=== PATIENT | female | born 1995 | race Caucasian/White ===

== ENCOUNTER 2017-08-16 19:20 | Emergency (ER) | payer SELFPAY ==
[2017-08-16] MEDS ORDERED: ACETAMINOPHEN TAB 500 MG TAB PO STA (20:07)
[2017-08-16] MEDS ORDERED: SODIUM CHLORIDE 0.9% 1,000 ML IV ONE (20:07)
--- NOTE | 2017-08-16 21:26 | US ---
EXAMINATION TYPE: US OB <= 14 wk fetus DATE OF EXAM: 08/16/2017 COMPARISON: NONE CLINICAL HISTORY: Pain. RLQ pain, no bleeding,h/o ovarian cysts EXAM PERFORMED: OBTA EXAM MEASUREMENTS: GESTATIONAL AGE / DATING Physician Established: Not yet established Dates by LMP: (9 weeks/0 days) EDC: 03/21/2018 Dates by First Scan: No previous this is first scan Dates by Current Scan for: (8 weeks/3 days) EDC: 03/25/2018 MATERNAL ANATOMY Uterus: 10.4 x 6.9 x 6.0cm Right Ovary: 3.8 x 2.4 x 2.0cm Left Ovary: 2.3 x 2.1 x 1.8cm Post CDS / Adnexa: wnl Presence of free fluid: no Presence of corpus luteal cyst: right ovary = 1.5cm Presence of subchorionic bleed: no GESTATION / SURVEY CRL: 1.9cm (8 weeks/3 days) MSD: wnl Yolk Sac (normal less than 6mm): 0.3cm Heart Rate: 171 bpm Rhythm: Normal IUP: Viable IUP Date of LMP: 06/14/2017 Beta HcG (if available): pending IMPRESSION: The ultrasound gestational age is 8 weeks 3 days.. I see no complicating process.
[2017-08-16 21:31] LABS: Basophils # (A) 0.1 k/uL (0-0.2); Basophils % (A) 1 %; CH 30.8; CHCM 34.3; Eosinophils # (A) 0.3 k/uL (0-0.7); Eosinophils % (A) 2 %; HCT 37.2 % (34.0-46.0); HDW 2.33; HGB 12.6 gm/dL (11.4-16.0); Luc # (Auto) 0.08; Luc % (Auto) 1; Lymphocytes # (A) 4.4 k/uL (1.0-4.8); Lymphocytes % (A) 28 %; MCH 30.5 pg (25.0-35.0); MCHC 33.8 g/dL (31.0-37.0); MCV 90.2 fL (80.0-100.0); Mean Platelet Volume 7.6; Monocytes # (A) 0.7 k/uL (0-1.0); Monocytes % (A) 5 %; Neutrophils # (A) 10.2 k/uL (1.3-7.7); Neutrophils % (A) 65 %; RBC 4.13 m/uL (3.80-5.40); RDW 13.2 % (11.5-15.5); WBC 15.8 k/uL (3.8-10.6); WBC (Perox) 16.08
[2017-08-16 21:39] LABS: Partial Thromboplastin Time 22.8 sec (22.0-30.0); Prothrombin Time 10.2 sec (9.0-12.0)
[2017-08-16 21:41] LABS: ALT 46 U/L (9-52); AST 24 U/L (14-36); Alkaline Phosphatase 79 U/L (38-126); Anion Gap 12 mmol/L; Blood Urea Nitrogen 12 mg/dL (7-17); Calcium 9.5 mg/dL (8.4-10.2); Carbon Dioxide 21 mmol/L (22-30); Chloride 104 mmol/L (98-107); Glucose 79 mg/dL (74-99); Non-African American GFR(MDRD) >60 (>60 ml/min/1.73 sqM); Potassium 3.8 mmol/L (3.5-5.1); Sodium 137 mmol/L (137-145); Total Bilirubin 0.2 mg/dL (0.2-1.3); Total Protein 7.1 g/dL (6.3-8.2)
--- NOTE | 2017-08-16 21:53 | ED ---
General Adult HPI - General Chief complaint: Urogenital Stated complaint: 8 weeks /Abd Pain Time Seen by Provider: 08/16/17 19:40 Source: patient, RN notes reviewed, old records reviewed Mode of arrival: ambulatory Limitations: no limitations - History of Present Illness Initial comments: Patient is 22 to feel presents emergency Department chief complaint of 1 day of right lower quadrant pain. Patient reports as a sharp stabbing pain. She states she started to have a couple episodes yesterday within the subsided. 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 Denies any vaginal discharge dysuria or hematuria. Denies any back pain, nausea or vomiting. Patient states that this is her first . - Related Data Home Medications Medication Instructions Recorded Confirmed [phone] 1 tab PO DAILY PRN 08/16/17 08/16/17 [Excedrin] Pnv No.95/Ferrous Fum/Folic AC 1 tab PO DAILY 08/16/17 08/16/17 [ Multivitamin Tablet] Allergies Allergy/AdvReac Type Severity Reaction Status Date / Time No Known Allergies Allergy Verified 08/16/17 19:39 Review of Systems ROS Statement: Those systems with pertinent positive or pertinent negative responses have been documented in the HPI. ROS Other: All systems not noted in ROS Statement are negative. Past Medical History Past Medical History: No Reported History History of Any Multi-Drug Resistant Organisms: None Reported Past Surgical History: No Surgical Hx Reported Past Psychological History: No Psychological Hx Reported Smoking Status: Current every day smoker Past Alcohol Use History: None Reported Past Drug Use History: None Reported General Exam Limitations: no limitations General appearance: alert, in no apparent distress Head exam: Present: atraumatic, normocephalic, normal inspection Eye exam: Present: normal appearance, PERRL, EOMI. Absent: scleral icterus, conjunctival injection, periorbital swelling ENT exam: Present: normal exam, mucous membranes moist Neck exam: Present: normal inspection. Absent: tenderness, meningismus, lymphadenopathy Respiratory exam: Present: normal lung sounds bilaterally. Absent: respiratory distress, wheezes, rales, rhonchi, stridor Cardiovascular Exam: Present: regular rate, normal rhythm, normal heart sounds. Absent: systolic murmur, diastolic murmur, rubs, gallop, clicks GI/Abdominal exam: Present: soft, normal bowel sounds. Absent: distended, tenderness, guarding, rebound, rigid Extremities exam: Present: normal inspection, full ROM, normal capillary refill. Absent: tenderness, pedal edema, joint swelling, calf tenderness Back exam: Present: normal inspection Neurological exam: Present: alert, oriented X3, CN II-XII intact Psychiatric exam: Present: normal affect, normal mood Skin exam: Present: warm, dry, intact, normal color. Absent: rash Course Vital Signs 08/16/17 08/16/17 19:26 22:34 Temperature 98.4 F 98.7 F Pulse Rate 87 81 Respiratory 16 18 Rate Blood Pressure 141/79 139/85 O2 Sat by Pulse 100 99 Oximetry Medical Decision Making - Medical Decision Making 22-year-old female to plan 1 day of right lower quadrant abdominal pain. It is . Ultrasound shows viable IUP, no signs of ectopic . Discussed that she is a mildly elevated white blood cell count. Discussed clinically patient is up-to-date the picture for appendicitis. No fever. No rigors or chills. Patient's urinalysis negative for any infection. Pelvic exam was benign. Ultrasound does show a right ovarian cyst. With this is likely the source of pain. Patient will be discharged at this time with close follow-up with RESEARCH LEADER and primary care provider patient agrees to treatment plan will comply. Discharge vitamins. - Lab Data Result diagrams: 08/16/17 21:18 08/16/17 21:18 Lab Results 08/16/17 08/16/17 08/16/17 Range/Units 21:18 21:18 21:18 WBC 15.8 H (3.8-10.6) k/uL RBC 4.13 (3.80-5.40) m/uL Hgb 12.6 (11.4-16.0) gm/dL Hct 37.2 (34.0-46.0) % MCV 90.2 (80.0-100.0) fL MCH 30.5 (25.0-35.0) pg MCHC 33.8 (31.0-37.0) g/dL RDW 13.2 (11.5-15.5) % Plt Count 341 (150-450) k/uL Neutrophils % 65 % Lymphocytes % 28 % Monocytes % 5 % Eosinophils % 2 % Basophils % 1 % Neutrophils # 10.2 H (1.3-7.7) k/uL Lymphocytes # 4.4 (1.0-4.8) k/uL Monocytes # 0.7 (0-1.0) k/uL Eosinophils # 0.3 (0-0.7) k/uL Basophils # 0.1 (0-0.2) k/uL PT (9.0-12.0) sec INR (<1.2) APTT (22.0-30.0) sec Sodium 137 (137-145) mmol/L Potassium 3.8 (3.5-5.1) mmol/L Chloride 104 (98-107) mmol/L Carbon Dioxide 21 L (22-30) mmol/L Anion Gap 12 mmol/L BUN 12 (7-17) mg/dL Creatinine 0.50 L (0.52-1.04) mg/dL Est GFR (MDRD) Af Amer >60 (>60 ml/min/1.73 sqM) Est GFR (MDRD) Non-Af >60 (>60 ml/min/1.73 sqM) Glucose 79 (74-99) mg/dL Calcium 9.5 (8.4-10.2) mg/dL Total Bilirubin 0.2 (0.2-1.3) mg/dL AST 24 (14-36) U/L ALT 46 (9-52) U/L Alkaline Phosphatase 79 (38-126) U/L Total Protein 7.1 (6.3-8.2) g/dL Albumin 4.3 (3.5-5.0) g/dL HCG, Quant 06339.9 mIU/mL Urine Color Urine Appearance (Clear) Urine pH (5.0-8.0) Ur Specific Ken[place] (1.001-1.035) Urine Protein (Negative) Urine Glucose (UA) (Negative) Urine Ketones (Negative) Urine Blood (Negative) Urine Nitrite (Negative) Urine Bilirubin (Negative) Urine Urobilinogen (<2.0) mg/dL Ur Leukocyte Esterase (Negative) Urine RBC (0-5) /hpf Urine WBC (0-5) /hpf Ur Squamous Epith Cells (0-4) /hpf Trichomonas Ag (Rapid) (Negative) Blood Type B Positive Blood Type Recheck No 08/16/17 08/16/17 08/16/17 Range/Units 21:18 21:18 22:00 WBC (3.8-10.6) k/uL RBC (3.80-5.40) m/uL Hgb (11.4-16.0) gm/dL Hct (34.0-46.0) % MCV (80.0-100.0) fL MCH (25.0-35.0) pg MCHC (31.0-37.0) g/dL RDW (11.5-15.5) % Plt Count (150-450) k/uL Neutrophils % % Lymphocytes % % Monocytes % % Eosinophils % % Basophils % % Neutrophils # (1.3-7.7) k/uL Lymphocytes # (1.0-4.8) k/uL Monocytes # (0-1.0) k/uL Eosinophils # (0-0.7) k/uL Basophils # (0-0.2) k/uL PT 10.2 (9.0-12.0) sec INR 1.0 (<1.2) APTT 22.8 (22.0-30.0) sec Sodium (137-145) mmol/L Potassium (3.5-5.1) mmol/L Chloride (98-107) mmol/L Carbon Dioxide (22-30) mmol/L Anion Gap mmol/L BUN (7-17) mg/dL Creatinine (0.52-1.04) mg/dL Est GFR (MDRD) Af Amer (>60 ml/min/1.73 sqM) Est GFR (MDRD) Non-Af (>60 ml/min/1.73 sqM) Glucose (74-99) mg/dL Calcium (8.4-10.2) mg/dL Total Bilirubin (0.2-1.3) mg/dL AST (14-36) U/L ALT (9-52) U/L Alkaline Phosphatase (38-126) U/L Total Protein (6.3-8.2) g/dL Albumin (3.5-5.0) g/dL HCG, Quant mIU/mL Urine Color Yellow Urine Appearance Cloudy H (Clear) Urine pH 6.0 (5.0-8.0) Ur Specific [place] 1.023 (1.001-1.035) Urine Protein Negative (Negative) Urine Glucose (UA) Negative (Negative) Urine Ketones Negative (Negative) Urine Blood Negative (Negative) Urine Nitrite Negative (Negative) Urine Bilirubin Negative (Negative) Urine Urobilinogen <2.0 (<2.0) mg/dL Ur Leukocyte Esterase Negative (Negative) Urine RBC 5 (0-5) /hpf Urine WBC 2 (0-5) /hpf Ur Squamous Epith Cells 11 H (0-4) /hpf Trichomonas Ag (Rapid) Negative (Negative) Blood Type Blood Type Recheck - Radiology Data Radiology results: report reviewed Ultrasound shows will intrauterine . Measures eight weeks in one day. Also Derwent right sided ovarian cyst. Disposition Clinical Impression: Abdominal pain affecting , Ovarian cyst Disposition: HOME SELF-CARE Condition: Good Instructions: Ovarian Cyst (ED), Abdominal Pain in (ED) Additional Instructions: Patient rested Tylenol for pain. Take vitamins Follow-up with primary care provider. Return to emergency department if any alarming signs symptoms occur. Referrals: None,Stated [Primary Care Provider] - 1-2 days Michell Paz MD [STAFF PHYSICIAN] - 1-2 days Time of Disposition: 22:14
[2017-08-16 22:00] LABS: Appearance,Urine Cloudy (Clear); Bilirubin,Urine Negative (Negative); Glucose,Urine (UA) Negative (Negative); Ketones,Urine Negative (Negative); Leukocyte Esterase,Urine Negative (Negative); Nitrite,Urine Negative (Negative); Particle Count 3806; Protein,Urine Negative (Negative); RBC,Urine 5 /hpf (0-5); Specific Gravity,Urine 1.023 (1.001-1.035); Squamous Epithelial Cell,Urine 11 /hpf (0-4); UA Billing (MACRO vs. MICRO) MICRO; Urobilinogen,Urine <2.0 mg/dL (<2.0); WBC,Urine 2 /hpf (0-5)
[2017-08-16 22:36] VITALS: BP 139/85; PULSE 81; RESP 18; TEMP 98.7
== END 2017-08-16 22:34 | disposition home or self-care (01) ==
LOC: EC 19:20
DX: O34.81 Maternal care for other abnormalities of pelvic organs, first trimester (principal); N83.201 Unspecified ovarian cyst, right side; O99.331 Smoking (tobacco) complicating pregnancy, first trimester; F17.200 Nicotine dependence, unspecified, uncomplicated; Z79.899 Other long term (current) drug therapy; Z3A.08 8 weeks gestation of pregnancy
CPT/HCPCS: 36415; 76801; 80053; 81001; 84702; 85025; 85610; 85730; 86900; 86901; 87070; 87205; 87491; 87591; 87808; 96360; 99284

== ENCOUNTER 2018-04-01 07:17 | Observation (INO) | payer OTHER ==
[2018-04-01] MEDS ORDERED: MORPHINE SULFATE 2 MG/ML SYRINGE IV STA (07:59)
[2018-04-01] MEDS ORDERED: SODIUM CHLORIDE 0.9% 1,000 ML IV STA (07:59)
[2018-04-01] MEDS ORDERED: ONDANSETRON 4 MG/2 ML VIAL IVP STA (07:59)
[2018-04-01] MEDS ORDERED: SODIUM CHLORIDE 0.9% 500 ML IV STA (07:59)
[2018-04-01] MEDS ORDERED: HYDROmorphone 0.5 MG/0.5 ML SYRINGE IVP STA (08:10)
[2018-04-01 08:20] LABS: Basophils # (A) 0.1 k/uL (0-0.2); Basophils % (A) 1 %; Eosinophils # (A) 0.2 k/uL (0-0.7); Eosinophils % (A) 2 %; HCT 38.8 % (34.0-46.0); HGB 13.7 gm/dL (11.4-16.0); Lymphocytes # (A) 2.8 k/uL (1.0-4.8); Lymphocytes % (A) 24 %; MCH 30.7 pg (25.0-35.0); MCHC 35.4 g/dL (31.0-37.0); MCV 86.8 fL (80.0-100.0); Mean Platelet Volume 6.9; Monocytes # (A) 0.5 k/uL (0-1.0); Monocytes % (A) 5 %; Neutrophils # (A) 7.9 k/uL (1.3-7.7); Neutrophils % (A) 68 %; Platelet Count 430 k/uL (150-450); RBC 4.47 m/uL (3.80-5.40); RDW 13.1 % (11.5-15.5); WBC 11.7 k/uL (3.8-10.6)
[2018-04-01 08:29] LABS: Partial Thromboplastin Time 22.9 sec (22.0-30.0); Prothrombin Time 9.8 sec (9.0-12.0)
[2018-04-01 08:32] LABS: ALT 29 U/L (9-52); AST 29 U/L (14-36); Albumin 3.8 g/dL (3.5-5.0); Alkaline Phosphatase 135 U/L (38-126); Amylase 49 U/L (30-110); Anion Gap 15 mmol/L; Blood Urea Nitrogen 22 mg/dL (7-17); Calcium 9.2 mg/dL (8.4-10.2); Carbon Dioxide 23 mmol/L (22-30); Chloride 105 mmol/L (98-107); Glucose 83 mg/dL (74-99); Lipase 125 U/L (23-300); Magnesium 1.7 mg/dL (1.6-2.3); Potassium 4.2 mmol/L (3.5-5.1); Sodium 143 mmol/L (137-145); Total Bilirubin 0.3 mg/dL (0.2-1.3); Total Protein 6.7 g/dL (6.3-8.2)
[2018-04-01 08:43] LABS: Creatine Kinase 39 U/L (30-135)
[2018-04-01 08:57] LABS: Creatine Kinase MB <0.2 ng/mL (0.0-2.4); Troponin I <0.012 ng/mL (0.000-0.034)
--- NOTE | 2018-04-01 09:16 | ED ---
Chest Pain HPI - General Chief Complaint: Chest Pain Stated Complaint: Chest Pain Time Seen by Provider: 04/01/18 07:38 Source: patient Mode of arrival: wheelchair Limitations: no limitations - History of Present Illness Initial Comments: 22 years old female sets with the chest pain, chest pain radiates towards her back she just delivered a baby about 11 days ago she said chest pain gets worse with deep breaths, she has no history of heart disease in the past denies any PE and DVT as well. 10 over 10 at work her up with a deep sleep. Denies any abdominal pain no frequency urgency dysuria no symptoms of TIA or CVA - Related Data Home Medications Medication Instructions Recorded Confirmed No Known Home Medications 04/01/18 04/01/18 Allergies Allergy/AdvReac Type Severity Reaction Status Date / Time No Known Allergies Allergy Verified 04/01/18 07:46 Review of Systems ROS Statement: Those systems with pertinent positive or pertinent negative responses have been documented in the HPI. ROS Other: All systems not noted in ROS Statement are negative. EKG Findings - EKG Comments: EKG Findings:: EKG is normal sinus ventricular rate is 76 IN interval is 144 QRS duration is 82 QT/QTc is 390/443 and 50 CK G does not reveal any ST elevation or ST depression Past Medical History Past Medical History: No Reported History History of Any Multi-Drug Resistant Organisms: None Reported Past Surgical History: No Surgical Hx Reported Past Psychological History: No Psychological Hx Reported Smoking Status: Former smoker Past Alcohol Use History: None Reported Past Drug Use History: None Reported General Exam - General Exam Comments Initial Comments: General: The patient is awake and alert, in mild distress, she is anxious Skin: Skin is warm and dry and no rashes or lesions are noted. Eye: Pupils are equal, round and reactive to light, extra-ocular movements are intact; there is normal conjunctiva bilaterally. Ears, nose, mouth and throat: There are moist mucous membranes and no oral lesions. Neck: The neck is supple, there is no tenderness or JVD. Cardiovascular: There is a regular rate and rhythm. No murmur, rub or gallop is appreciated. Noticed tachycardia Respiratory: To auscultation bilateral, no wheezing no rhonchi no distress respiratory nunes noticed Gastrointestinal: Soft, non-distended, non-tender abdomen without masses or organomegaly noted. There is no rebound or guarding present. Bowel sounds are unremarkable. Back: There is no tenderness to palpation in the midline. There is no obvious deformity. Musculoskeletal: Normal ROM, no tenderness, There is no pedal edema. There is no calf tenderness or swelling. No cords were appreciated. Neurological: CN II-XII intact, Cranial nerves III through XII are intact. There are no obvious motor or sensory deficits. Coordination appears grossly intact. Speech is normal. Psychiatric: Cooperative, appropriate mood & affect, normal judgment. Limitations: no limitations Course Vital Signs 04/01/18 04/01/18 04/01/18 07:22 07:59 09:11 Temperature 98.3 F Pulse Rate 101 H 73 Respiratory 20 26 H 18 Rate Blood Pressure 100/59 131/86 O2 Sat by Pulse 100 98 Oximetry Upon reassessment noticed white count is 11.7 with some left shift d-dimer is 1.0 to NEGATIVE chest x-ray is negative CT was done after her d-dimer was positive that ruled out pulmonary embolism she had a 2 episodes of chest pain one before she delivers the baby and on this one had lasted for half an hour was excruciating pain 10 over 10 today I wanted make sure there is no anatomical defect in the heart. Probability of ischemic heart disease is very low per wanted to observe her for 24 hours with the cardiology consult him was probably echocardiogram, this was discussed with the patient patient agrees with that Disposition Clinical Impression: Chest pain, Pleuritic chest pain Disposition: ADMITTED IP TO THIS HOSP Condition: Good Referrals: Dennis Stiles MD [Primary Care Provider] - 1-2 days
--- NOTE | 2018-04-01 09:17 | XR ---
EXAMINATION TYPE: XR chest 2V DATE OF EXAM: 04/01/2018 COMPARISON: NONE HISTORY: Chest pain TECHNIQUE: Frontal and lateral views of the chest are obtained. FINDINGS: There is no focal air space opacity. No evidence for pneumothorax. No pleural effusion. The cardiac silhouette size is within normal limits. The osseous structures are grossly intact. IMPRESSION: 1. No acute cardiopulmonary process.
--- NOTE | 2018-04-01 09:36 | CT ---
EXAMINATION TYPE: CT chest angio for PE DATE OF EXAM: 04/01/2018 COMPARISON: None HISTORY: c/o posterior chest pain between shoulders. [address] DLP: 428.4 mGycm CONTRAST: CT chest with contrast and 3D reconstruction with MIP imaging is performed with IV Contrast, patient injected with 78 mL of Isovue 370. Contrast-enhanced CT of the chest was performed through the course of the pulmonary arteries with carlos g and mediastinal window settings submitted. 3D reconstruction with MIP imaging was also performed. PULMONARY ARTERIES: The pulmonary arteries and their major tributaries are patent. I do not see lizet dence for sizable filling defect to suggest pulmonary embolic process. LUNGS: The lungs are clear and free of infiltrate. No evidence for atelectasis. No pulmonary nodule or mass is detected. No pleural effusion. MEDIASTINUM: Thoracic aorta is of normal caliber,however, evaluation is limited given timing of the contrast bolus. If there is concern for thoracic aortic pathology consider HAILEY. Correlate clinicall y . The heart is not enlarged. No evidence for mediastinal mass. No mediastinal lymph nodes greater than 1cm. HILAR STRUCTURES: No evidence for mass. No hilar lymph nodes greater than 1 cm. UPPER ABDOMEN: Tiny gallstone is noted. IMPRESSION: 1. No evidence for Pulmonary embolism at this time.
[2018-04-01] MEDS ORDERED: NITROGLYCERIN SL TABS 0.4 MG TAB SUBLINGUAL PRN (10:11)
[2018-04-01] MEDS ORDERED: MORPHINE SULFATE 2 MG/ML SYRINGE IVP PRN (10:11)
[2018-04-01] MEDS ORDERED: ACETAMINOPHEN TAB 325 MG TAB PO PRN (10:11)
--- NOTE | 2018-04-01 15:00 | P.CRDCN ---
History of Present Illness History of present illness: Mrs Hylton is a pleasant 22-year-old female past medical history significant for nicotine dependence and recent vaginal delivery 11 days ago. She states this morning she woke up to use the restroom and noticed a discomfort in the mid-back between her shoulder blades. She proceeded to go use the bathroom. While she was using the restroom she felt an intense pain like a knife stabbing her in the back straight through to her anterior chest. She became acutely short of breath, diaphoretic and dizzy. She also felt as though her heart was racing. She said the intense pain lasted for about 15 minutes and then slowly subsided on its own. She decided to come to ED for evaluation and on her way here she again had an intense sharp pain that started in the mid upper back and came through to the front. There was no radiation of the pain to the arms, neck or jaw. She denies associated nausea or vomiting. EKG reveals sinus mechanism with no acute ST or T-wave abnormalities noted. Chest xray negative for an acute cardiopulmonary process. CT angio chest negative for PE. Laboratory data reviewed, WBC 11.7, hemoglobin 13.7, platelets 430, d-dimer 1.0 , sodium 143, potassium 4.2, magnesium 1.7, creatinine 0.4, cardiac enzymes negative 1. Review of Systems At the time of my exam: CONSTITUTIONAL: Denies fever. Denies chills. EYES: Denies blurred vision. Denies vision changes. Denies eye pain. EARS, NOSE, MOUTH & THROAT: Denies headache. Denies sore throat. Denies ear pain. CARDIOVASCULAR: Denies chest pain. Denies shortness of breath. Denies orthopnea. Denies PND. Denies palpitations. RESPIRATORY: Denies cough. GASTROINTESTINAL: Denies abdominal pain. Denies diarrhea. Denies constipation. Denies nausea. Denies vomiting. MUSCULOSKELETAL: Denies myalgias. INTEGUMENTARY: Denies pruitis. Denies rash. NEUROLOGIC: Denies numbness. Denies tingling. Denies weakness. PSYCHIATRIC: Denies anxiety. Denies depression. ENDOCRINE: Denies fatigue. Denies weight change. Denies polydipsia. Denies polyurina. GENITOURINARY: Denies burning, hematuria or urgency with micturation. HEMATOLOGIC: Denies history of anemia. Denies bleeding. Past Medical History Past Medical History: No Reported History Additional Past Medical History / Comment(s): Pt is 11 days post History of Any Multi-Drug Resistant Organisms: MRSA Date of last positivie culture/infection: 2011 MDRO Source:: buttock Past Surgical History: Orthopedic Surgery Additional Past Surgical History / Comment(s): Pt had extra digit removed from R thumb as infant. Past Anesthesia/Blood Transfusion Reactions: Unable to Obtain Additional Past Anesthesia/Blood Transfusion Reaction / Comment(s): Pt has never had general anesthesia Smoking Status: Former smoker - Past Family History Father Family Medical History: No Reported History Mother Family Medical History: No Reported History Medications and Allergies Home Medications Medication Instructions Recorded Confirmed Type No Known Home Medications 04/01/18 04/01/18 History Allergies Allergy/AdvReac Type Severity Reaction Status Date / Time No Known Allergies Allergy Verified 04/01/18 07:46 Physical Exam Vitals: Vital Signs Temp Pulse Pulse Resp BP BP Pulse Ox 04/01/18 10:53 98.5 F 61 18 118/74 98 04/01/18 10:24 98 F 80 18 127/68 100 04/01/18 09:11 73 18 131/86 98 04/01/18 07:59 26 H 04/01/18 07:22 98.3 F 101 H 20 100/59 100 Intake and Output 03/31/18 04/01/18 04/01/18 22:59 06:59 14:59 Other: Weight 97.4 kg Blood pressure 119/74 rate 61 afebrile maintaining oxygen saturation on room air GENERAL: This is a 22-year-old female in no apparent distress at the time of my examination. HEENT: Head is atraumatic, normocephalic. Pupils are equal, round. Sclerae anicteric. Conjunctivae are clear. Mucous membranes of the mouth are moist. Neck is supple. There is no jugular venous distention. No carotid bruit is heard. LUNGS: Clear to auscultation no wheezes, rales or rhonchi. No chest wall tenderness is noted on palpation or with deep breathing. HEART: Regular rate and rhythm without murmurs, rubs or gallops. S1 and S2 heard. ABDOMEN: Soft, nontender. Bowel sounds are heard. No organomegaly noted. EXTREMITIES: No evidence of peripheral edema and no calf tenderness noted. VASCULAR: Radial and dorsalis pedis pulses palpated, no evidence of clubbing. NEUROLOGIC: Patient is awake, alert and oriented x3. Results 04/01/18 07:52 04/01/18 07:52 Cardiac Enzymes 04/01/18 04/01/18 Range/Units 07:52 07:52 AST 29 (14-36) U/L CK-MB (CK-2) <0.2 (0.0-2.4) ng/mL Troponin I <0.012 (0.000-0.034) ng/mL Coagulation 04/01/18 Range/Units 07:52 PT 9.8 (9.0-12.0) sec APTT 22.9 (22.0-30.0) sec CBC 04/01/18 Range/Units 07:52 WBC 11.7 H (3.8-10.6) k/uL RBC 4.47 (3.80-5.40) m/uL Hgb 13.7 (11.4-16.0) gm/dL Hct 38.8 (34.0-46.0) % Plt Count 430 (150-450) k/uL Comprehensive Metabolic Panel 04/01/18 Range/Units 07:52 Sodium 143 (137-145) mmol/L Potassium 4.2 (3.5-5.1) mmol/L Chloride 105 (98-107) mmol/L Carbon Dioxide 23 (22-30) mmol/L BUN 22 H (7-17) mg/dL Creatinine 0.84 (0.52-1.04) mg/dL Glucose 83 (74-99) mg/dL Calcium 9.2 (8.4-10.2) mg/dL AST 29 (14-36) U/L ALT 29 (9-52) U/L Alkaline Phosphatase 135 H (38-126) U/L Total Protein 6.7 (6.3-8.2) g/dL Albumin 3.8 (3.5-5.0) g/dL Current Medications Generic Name Dose Route Start Last Admin Trade Name Freq PRN Reason Stop Dose Admin Acetaminophen 650 mg 04/01/18 10:11 Tylenol Tab PO Q4HR PRN MILD Pain Aspirin 325 mg 04/02/18 09:00 Aspirin PO DAILY DARYN Sodium Chloride 1,000 mls @ 100 mls/hr 04/01/18 07:59 04/01/18 08:10 Saline 0.9% IV 04/01/18 17:58 100 mls/hr .Q10H STA Administration Morphine Sulfate 2 mg 04/01/18 10:11 Morphine Sulfate (Inj) IVP Q5M PRN Chest Pain Nitroglycerin 0.4 mg 04/01/18 10:11 Nitrostat SUBLINGUAL Q5M PRN Chest Pain Intake and Output 03/31/18 04/01/18 04/01/18 22:59 06:59 14:59 Other: Weight 97.4 kg Patient Weight 04/02/18 06:59 Weight 97.4 kg 04/01/18 07:52 04/01/18 07:52 Assessment and Plan Assessment: ASSESSMENT Sharp, intense chest pain originating in upper back radiating through to anterior chest. Recent vaginal delivery 11 days ago Recent nicotine dependence PLAN Obtain 2D echocardiogram and doppler study to assess cardiac structure and function. Continue to obtain serial cardiac enzymes to rule out an acute coronary event. Continue with telemetry monitoring and ongoing monitoring for another 24 hrs. Concern for cardiac dissection with recent exertion with vaginal delivery. Thank you kindly for this consultation. Nurse Practitioner note has been reviewed, I agree with a documented findings and plan of care. Patient was seen and examined.
[2018-04-01 15:29] LABS: Creatine Kinase 33 U/L (30-135)
[2018-04-01 15:39] LABS: Creatine Kinase MB <0.2 ng/mL (0.0-2.4); Troponin I <0.012 ng/mL (0.000-0.034)
--- NOTE | 2018-04-01 19:25 | HP ---
HISTORY AND PHYSICAL DATE OF ADMISSION: 04/01/2018 DATE OF SERVICE: 04/01/2018. PRESENTING COMPLAINT: Chest pain. HISTORY OF PRESENTING COMPLAINT: This is a very pleasant 22-year-old patient of Dr. Stiles. The patient delivered a baby 11 days ago, a girl. The patient is . The patient woke up with pain between the shoulder blades and front of the chest, felt like a knife. The patient was short of breath, a bit dizzy. It progressed to get worse and patient was brought into the ER. CT chest was done. There was no PE. There was no cough, swelling. The patient has been . Denies any fever, chills. No cough. When I see this patient today, the patient's symptoms are greatly improved; very mild,if any. The patient does not feel dizzy, lightheaded right now. REVIEW OF SYSTEMS: CONSTITUTIONAL: Tired. HEENT: None. RESPIRATORY: As above. CARDIOVASCULAR: As above. GASTROINTESTINAL: Heartburn. GENITOURINARY: None. MUSCULOSKELETAL: None. DERMATOLOGICAL: None. HEMATOLOGIC: None. LYMPHATIC: None. PSYCHIATRY: None. NEUROLOGICAL: None. EXTREMITIES: No calf swelling. PAST MEDICAL HISTORY: 11 days ago. PAST SURGICAL HISTORY: Orthopedic surgery, extra digit removed from the right thumb as an infant. 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 Smoked for 9 years. Stopped smoking after she became . FAMILY HISTORY: Reviewed, noncontributory to presentation. HOME MEDICATIONS: None. ALLERGIES: None. EXAMINATION: VITAL SIGNS: On presentation, temperature 98.3, pulse 101, respirations 20, blood pressure 100/59, pulse ox 100% on room air. GENERAL APPEARANCE: Well-built, BMI 39.3. Sitting up, comfortable. EYES: Pupils equal. Conjunctivae normal. HEENT: External appearance of nose and ears normal. Oral cavity normal. NECK: JVD not raised. Mass not palpable. RESPIRATORY: Effort normal. Lungs are clear. CARDIOVASCULAR: First and second sounds normal. No edema. ABDOMEN: Soft, nontender. Liver and spleen not palpable. LYMPHATIC: No lymph node palpable in neck or axillae. PSYCHIATRY: Alert and oriented x3. Mood and affect normal. NEUROLOGICAL: Pupils equal. Cranial nerves grossly intact. Power and sensation grossly intact. EXTREMITIES: No swelling of both the calves. INVESTIGATIONS: White count 9.7, hemoglobin 13.7. Potassium 4.2, BUN 22, creatinine 0.84. Troponin x2 negative. The labs are interpreted by me. EKG tracing was interpreted by me, normal sinus rhythm. No abnormal findings. Chest x-ray film was interpreted by me. Lung pugh are clear. No acute cardiac processes detected. ASSESSMENT: 1. This is a 22-year-old patient who is 11 days, presented with acute chest pain between the shoulder blades in the chest. Chest CT is negative for pulmonary embolism. There is not full contrast in the thoracic aorta. The patient's symptoms are greatly improved. The patient feels much improved. This well could have been an esophageal spasm, given that patient has gastroesophageal reflux disease, though may have to do a repeat CTA to make sure, given that presentation and the full contrast was not available in the aorta. 2. Obesity, BMI 39.3. 3. 1st child, 11 days old. PLAN: At this point, will repeat a chest CT chest angio of the chest to make sure there is no mild dissection, though clinically doing much better; feels good, no dizziness, no lightheadedness anymore. Cardiology was consulted, who saw the patient earlier today. They ordered a 2D echocardiogram. Follow. MMODL / IJN: [id number] /
[2018-04-01 19:46] VITALS: RESP 16
[2018-04-01 20:48] LABS: Creatine Kinase 34 U/L (30-135)
[2018-04-01 21:00] LABS: Creatine Kinase MB <0.2 ng/mL (0.0-2.4); Troponin I <0.012 ng/mL (0.000-0.034)
[2018-04-01 22:19] LABS: Cholesterol 257 mg/dL (<200); HDL Cholesterol 45 mg/dL (40-60); LDL Cholesterol,Calculated 151 mg/dL (0-99); Triglycerides 303 mg/dL (<150)
[2018-04-02 08:42] LABS: Basophils # (A) 0.1 k/uL (0-0.2); Basophils % (A) 1 %; Eosinophils # (A) 0.2 k/uL (0-0.7); Eosinophils % (A) 3 %; HCT 43.1 % (34.0-46.0); HGB 14.4 gm/dL (11.4-16.0); Lymphocytes # (A) 2.7 k/uL (1.0-4.8); Lymphocytes % (A) 33 %; MCH 29.9 pg (25.0-35.0); MCHC 33.5 g/dL (31.0-37.0); MCV 89.3 fL (80.0-100.0); Mean Platelet Volume 6.8; Monocytes # (A) 0.3 k/uL (0-1.0); Monocytes % (A) 3 %; Neutrophils # (A) 4.8 k/uL (1.3-7.7); Neutrophils % (A) 59 %; Platelet Count 481 k/uL (150-450); RBC 4.83 m/uL (3.80-5.40); RDW 13.1 % (11.5-15.5); WBC 8.2 k/uL (3.8-10.6)
[2018-04-02 08:50] LABS: Anion Gap 14 mmol/L; Blood Urea Nitrogen 19 mg/dL (7-17); Calcium 9.9 mg/dL (8.4-10.2); Carbon Dioxide 25 mmol/L (22-30); Chloride 103 mmol/L (98-107); Glucose 92 mg/dL (74-99); Potassium 4.9 mmol/L (3.5-5.1); Sodium 142 mmol/L (137-145)
[2018-04-02] MEDS ORDERED: ASPIRIN 325 MG TAB PO SCH (09:00)
--- NOTE | 2018-04-02 11:17 | ECHOF ---
Referral Reason:cp MEASUREMENTS -------- HEIGHT: 157.5 cm WEIGHT: 97.1 kg BP: 118/74 RVIDd: 3.1 cm (< 3.3) IVSd: 1.0 cm (0.6 - 1.1) LVIDd: 4.5 cm (3.9 - 5.3) LVPWd: 0.9 cm (0.6 - 1.1) IVSs: 1.4 cm LVIDs: 2.8 cm LVPWs: 1.7 cm LA Diam: 3.5 cm (2.7 - 3.8) LAESV Index (A-L): 21.22 ml/m Ao Diam: 2.9 cm (2.0 - 3.7) AV Cusp: 2.2 cm (1.5 - 2.6) MV EXCURSION: 19.176 mm (> 18.000) MV EF SLOPE: 78 mm/s (70 - 150) EPSS: 0.6 cm MV E Aquiles: 0.79 m/s MV DecT: 266 ms MV A Aquiles: 0.53 m/s MV E/A Ratio: 1.48 RAP: 5.00 mmHg RVSP: 20.18 mmHg FINDINGS -------- Sinus rhythm. This was a technically good study. The left ventricular size is normal. Left ventricular wall thickness is normal. Overall left vent ricular systolic function is normal with, an EF between 55 - 60 %. The right ventricle is normal in size. Normal LA size by volume 22+/-6 ml/m2. The right atrium is normal in size. The aortic valve is trileaflet and appears structurally normal. The mitral valve is normal. Mild tricuspid regurgitation present. Right ventricular systolic pressure is normal at < 35 mmHg. Trace/mild (physiologic) pulmonic regurgitation. The aortic root size is normal. Normal inferior vena cava with normal inspiratory collapse consistent with estimated right atrial pre ssure of 5 mmHg. The inferior vena cava is mildly dilated. There is no pericardial effusion. CONCLUSIONS -------- 1. Sinus rhythm. 2. This was a technically good study. 3. The left ventricular size is normal. 4. Left ventricular wall thickness is normal. 5. Overall left ventricular systolic function is normal with, an EF between 55 - 60 %. 6. The right ventricle is normal in size. 7. Normal LA size by volume 22+/-6 ml/m2. 8. The right atrium is normal in size. 9. The aortic valve is trileaflet and appears structurally normal. 10. The mitral valve is normal. 11. Mild tricuspid regurgitation present. 12. Right ventricular systolic pressure is normal at < 35 mmHg. 13. Trace/mild (physiologic) pulmonic regurgitation. 14. The aortic root size is normal. 15. Normal inferior vena cava with normal inspiratory collapse consistent with estimated right atrial pressure of 5 mmHg. 16. The inferior vena cava is mildly dilated. 17. There is no pericardial effusion. RUNNER OUT: Dotty Palmer RDCS
[2018-04-02 11:29] VITALS: BP 136/75; PULSE 81; TEMP 98
--- NOTE | 2018-04-02 11:47 | P.PN ---
Subjective Patient was seen and examined this morning resting comfortably in bed in no acute distress. She denies any further symptoms of chest discomfort. Telemetry tracings have indicated sinus mechanism with no acute arrhythmia or abnormality noted. Cardiac enzymes negative 3. Echocardiogram obtained reveals preserved left ventricular systolic function with ejection fraction 55- 60%. Blood pressure 136/75 heart rate 81 afebrile maintaining oxygen saturation on room air. Objective - Vital Signs Vital signs: Vital Signs Temp 98 F 04/02/18 11:28 Pulse 81 04/02/18 11:28 Resp 16 04/02/18 11:28 BP 136/75 04/02/18 11:28 Pulse Ox 95 04/02/18 11:28 Intake & Output 04/01/18 04/02/18 04/02/18 18:59 06:59 18:59 Intake Total 200 Balance 200 Weight 97.4 kg Intake: Oral 200 Other: Voiding Method Toilet Toilet - Exam GENERAL: Well-appearing, well-nourished and in no acute distress. NECK: Supple without JVD or thyromegaly. LUNGS: Breath sounds clear to auscultation bilaterally. Respiration equal and unlabored. No wheezes, rales or rhonchi. HEART: Regular rate and rhythm without murmurs, rubs or gallops. S1 and S2 heard. EXTREMITIES: Normal range of motion, no edema. No clubbing or cyanosis. Peripheral pulses intact. - Labs CBC & Chem 7: 04/02/18 08:27 04/02/18 08:27 Labs: Abnormal Lab Results - Last 24 Hours (Table) 04/01/18 04/02/18 04/02/18 Range/Units 07:52 08:27 08:27 Plt Count 481 H (150-450) k/uL BUN 19 H (7-17) mg/dL Triglycerides 303 H (<150) mg/dL Cholesterol 257 H (<200) mg/dL LDL Cholesterol, Calc 151 H (0-99) mg/dL Assessment and Plan Assessment: ASSESSMENT Sharp, intense chest pain originating in upper back radiating through to anterior chest. Recent vaginal delivery 11 days ago Recent nicotine dependence Dyslipidemia PLAN Smoking cessation and lifestyle modifications are recommended. Stable from a cardiac perspective. Thank you coronary event has been ruled out. Follow-up with primary care physician upon discharge. Nurse Practitioner note has been reviewed, I agree with a documented findings and plan of care. Patient was seen and examined.
--- NOTE | 2018-04-03 07:00 | DS ---
DISCHARGE SUMMARY DATE OF ADMISSION: 04/01/2018 DATE OF DISCHARGE: 04/02/2018 FINAL DIAGNOSES: 1. Acute chest pain, probably esophageal spasm secondary to gastroesophageal reflux disease. 2. Gastroesophageal reflux disease. 3. Obesity; body mass index 39.3. 4. first child 11 days old. HOSPITAL COURSE: This patient presented with severe midline sharp chest pain. CT scan of the chest was negative for PE. This morning I did talk to Dr. Menjivar who looked at the CAT scan again and felt there was enough contrast did confirm there was no any kind of dissection in the aorta. The patient does get reflux and it is possible the patient has severe amount of GERD. I did talk at length this morning to patient and patient's father about taking Pepcid. ON EXAMINATION: Lungs are clear. CARDIOVASCULAR: First and second sounds normal. CONSULTATION: Dr. Lucero from Cardiology. The patient did have a 2-D echocardiogram that was unremarkable. Follow up with Dr. Lucero in 1 to [address] Stiles in [place] in 3 days. MMODL / IJN: [id number] /
== END 2018-04-02 14:14 | disposition home or self-care (01) ==
LOC: EC 07:17 → 3OBS 10:12
PROVIDERS: ADMIT Hospitalist; ATTEND Hospitalist
DX: O90.89 Other complications of the puerperium, not elsewhere classified (principal); R07.89 Other chest pain; K21.9 Gastro-esophageal reflux disease without esophagitis; R79.89 Other specified abnormal findings of blood chemistry; R00.0 Tachycardia, unspecified; R42 Dizziness and giddiness; R61 Generalized hyperhidrosis; R06.02 Shortness of breath; E78.5 Hyperlipidemia, unspecified; Z68.39 Body mass index [BMI] 39.0-39.9, adult; E66.9 Obesity, unspecified; Z87.891 Personal history of nicotine dependence; Z86.14 Personal history of Methicillin resistant Staphylococcus aureus infection
CPT/HCPCS: 99285 ×2; 96374 ×2; 96375 ×2; 96361 ×3; 36415; 93005; 93306; 85379; 80061; 80053; 80048; 82150; 82550; 82553; 83690; 83735; 84484; 85025 ×2; 85610; 85730; 71046; 71275; G0378 ×2; J2405; J1170; Q9967

== ENCOUNTER 2020-09-26 13:46 | Emergency (ER) | payer OTHER ==
[2020-09-26 13:57] VITALS: BP 119/79; PULSE 85; RESP 18; TEMP 98.6
--- NOTE | 2020-09-26 14:31 | ED ---
Back Pain HPI - General Chief Complaint: Back Pain/Injury Stated Complaint: Back Pain Time Seen by Provider: 09/26/20 14:07 Source: patient Limitations: no limitations - History of Present Illness Initial Comments: 25-year-old female with history of chronic back pain presents emergency Department with a chief complaint of back spasms. Patient reports typically has back spasms 2-3 times per month. Patient states just feels like her typical symptoms. She denies any current injuries. Denies any saddle anesthesia, urinary retention with overflow incontinence or bowel incontinence. Denies any night sweats residuals. States that she is to see an service center specialist for spine but has not seen one over the last year secondary to insurance difficulties. States that usually [id number] analgesics help with the pain but not this time. States this pain has lasted for about 3 days now. Denies any chest pain or shortness of breath. - Related Data Previous Rx's Medication Instructions Recorded Cyclobenzaprine [Flexeril] 10 mg PO TID PRN #15 tab 09/26/20 Allergies Allergy/AdvReac Type Severity Reaction Status Date / Time No Known Allergies Allergy Verified 09/26/20 13:56 Review of Systems ROS Statement: Those systems with pertinent positive or pertinent negative responses have been documented in the HPI. ROS Other: All systems not noted in ROS Statement are negative. Past Medical History Past Medical History: No Reported History Additional Past Medical History / Comment(s): chronic back pain History of Any Multi-Drug Resistant Organisms: MRSA Date of last positivie culture/infection: 2011 MDRO Source:: buttock Past Surgical History: Orthopedic Surgery Additional Past Surgical History / Comment(s): Pt had extra digit removed from R thumb as infant. Past Anesthesia/Blood Transfusion Reactions: Unable to Obtain Additional Past Anesthesia/Blood Transfusion Reaction / Comment(s): Pt has never had general anesthesia Past Psychological History: No Psychological Hx Reported Smoking Status: Current every day smoker Past Alcohol Use History: None Reported Past Drug Use History: None Reported - Past Family History Father Family Medical History: No Reported History Mother Family Medical History: No Reported History General Exam Limitations: no limitations General appearance: alert, in no apparent distress, obese Head exam: Present: atraumatic, normocephalic, normal inspection Eye exam: Present: normal appearance, PERRL, EOMI Pupils: Present: normal accommodation ENT exam: Present: normal exam, normal oropharynx, mucous membranes moist, TM's normal bilaterally, normal external ear exam Neck exam: Present: normal inspection, full ROM. Absent: tenderness Respiratory exam: Present: normal lung sounds bilaterally. Absent: respiratory distress, wheezes, rales Cardiovascular Exam: Present: regular rate, normal rhythm, normal heart sounds. Absent: systolic murmur, diastolic murmur GI/Abdominal exam: Present: soft. Absent: distended, tenderness, guarding Extremities exam: Present: normal inspection, full ROM, normal capillary refill Back exam: Present: normal inspection, full ROM, tenderness, muscle spasm, paraspinal tenderness (Lower thoracic/upper lumbar paraspinal tenderness) Neurological exam: Present: alert, oriented X3 Psychiatric exam: Present: normal affect, normal mood Skin exam: Present: warm, dry, intact, normal color Course Vital Signs 09/26/20 13:54 Temperature 98.6 F Pulse Rate 85 Respiratory 18 Rate Blood Pressure 119/79 O2 Sat by Pulse 98 Oximetry Medical Decision Making - Medical Decision Making 25-year-old female with history of chronic back spasms presenting to the emergency department chief complaint of back spasm. On physical examination, patient has some paraspinal tenderness in the lower thoracic/upper lumbar region. Patient was given Toradol and Flexeril. States this typically helps with her pain. On reevaluation, patient reports improvement of symptoms. She states this otherwise feels like her typical back pain/spasms. Patient will be discharged with Flexeril. Advised not to drive or operate heavy machinery when taking medication. Advised to follow-up with . Return parameters discussed the patient is understanding and agreeable. Disposition Clinical Impression: Back muscle spasm Disposition: HOME SELF-CARE Condition: Stable Instructions (If sedation given, give patient instructions): Acute Low Back Pain (ED) Additional Instructions: Take prescribed medication as directed. Follow-up with service center specialist. Return to emergency department if symptoms worsen. Prescriptions: Cyclobenzaprine [Flexeril] 10 mg PO TID PRN #15 tab PRN Reason: Muscle Spasm Is patient prescribed a controlled substance at d/c from ED?: No Referrals: None,Stated [Primary Care Provider] - 1-2 days Arturo Escobedo DO [Doctor of Osteopathic Medicine] - 1-2 days Time of Disposition: 14:39
[2020-09-26] MEDS ORDERED: KETOROLAC 15 MG/ML 1 ML VIAL IM STA (14:38)
[2020-09-26] MEDS ORDERED: CYCLOBENZAPRINE 10 MG TAB PO STA (14:38)
== END 2020-09-26 15:10 | disposition home or self-care (01) ==
LOC: EC 13:46
DX: M62.830 Muscle spasm of back (principal); F17.200 Nicotine dependence, unspecified, uncomplicated; Z86.14 Personal history of Methicillin resistant Staphylococcus aureus infection
CPT/HCPCS: 99283; 96372; J1885